=== PATIENT | male | born 1965 | race Caucasian/White ===

== ENCOUNTER → 2020-09-01 | Outpatient (CLI) | payer BC ==
--- NOTE | 2020-09-01 15:43 | RAD ---
EXAM: Bilateral shoulders, 3 views. HISTORY: Pain. COMPARISON: None. FINDINGS: 3 views of both shoulders are obtained. There is moderate left and mild right inferior siddharth ohumeral joint spurring. There is slight calcification along the right greater tuberosity at the rota tor cuff insertion. There is no fracture, dislocation or subluxation. IMPRESSION: 1. 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 2. No acute osseous finding. Electronically signed by: Roberta Denny MD (09/01/2020 3:41 PM) [id number]
== END ==
LOC: RAD 15:18
PROVIDERS: ATTEND Orthopaedic Surgery
DX: M19.012 Primary osteoarthritis, left shoulder (principal); M19.011 Primary osteoarthritis, right shoulder; M77.8 Other enthesopathies, not elsewhere classified; M25.812 Other specified joint disorders, left shoulder; M25.811 Other specified joint disorders, right shoulder
CPT/HCPCS: 73030